=== PATIENT | male | born 2000 | race Caucasian/White ===

== ENCOUNTER 2019-07-12 02:47 | Emergency (ER) | payer OTHER ==
[~2019-07-12] VITALS: Ht 188 cm; Wt 97.7 kg
[2019-07-12 02:55] VITALS: Ht 188 cm; Wt 97.7 kg
[2019-07-12 04:02] VITALS: BP 128/72
== END 2019-07-12 04:04 | disposition home or self-care (01) ==
LOC: D.ER 02:47
DX: S80.01XA Contusion of right knee, initial encounter (principal); V89.2XXA Person injured in unspecified motor-vehicle accident, traffic, initial encounter; Y93.9 Activity, unspecified; Y92.9 Unspecified place or not applicable